=== PATIENT | female | born 1995 | race African-American/Black ===

== ENCOUNTER 2018-09-19 19:51 | Emergency (ER) | payer OTHER, BC ==
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
--- NOTE | 2018-09-19 23:02 | US ---
EXAM: US Abdomen Limited CLINICAL HISTORY: ITS.REASON US Reason: Pain TECHNIQUE: Real-time ultrasound of the abdomen including the 4 abdominal quadrants and midline, with image documentation. COMPARISON: No relevant prior studies available. FINDINGS: Scanning of the 4 abdominal quadrants and midline demonstrates no evidence for free fluid. IMPRESSION: No visualized free fluid/ascites.
--- NOTE | 2018-09-19 23:11 | US ---
EXAM: US First Trimester, Transabdominal US , Transvaginal CLINICAL HISTORY: ITS.REASON US Reason: Pain TECHNIQUE: Real-time transabdominal and transvaginal obstetrical ultrasound of the maternal pelvis and a first trimester with image documentation. Transvaginal imaging was used for better evaluation of the fetus and adnexa. COMPARISON: No relevant prior studies available. FINDINGS: Gestation: Evidence for single, intrauterine . [place]-rump length of 3.6 mm estimated 6 week 0 day gestational age. No current heart tones identified. A yolk sac is identified. Uterus/cervix: Unremarkable. No myometrial mass. Ovaries: Right ovary is 2.0 x 2.9 x 2.6 cm. Left ovary nonvisualized. Region of the left adnexa is obscured by bowel gas. Free fluid: No visualized free fluid. IMPRESSION: 1. Single intrauterine gestation identified, crown-rump length estimating 6 week 0 day gestational age. No heart tones identified currently, possibly too early though nonspecific with demise not excluded. Correlate with beta hCG value and short interval follow-up sonography (7-10 days or as indicated) to assess for viable . 2. Left ovary is nonvisualized. [employer] 09/19/18 23:12 Call Doctor Regarding Other, called Dr. Nayak
[2018-09-19 23:35] VITALS: TEMP 98
[2018-09-20 00:10] VITALS: BP 128/90; PULSE 80; RESP 18
== END 2018-09-20 | disposition home or self-care (01) ==
LOC: EC 19:51
DX: O99.89 Other specified diseases and conditions complicating pregnancy, childbirth and the puerperium (principal); R10.32 Left lower quadrant pain; M79.602 Pain in left arm; M79.605 Pain in left leg; Z3A.08 8 weeks gestation of pregnancy; Z71.1 Person with feared health complaint in whom no diagnosis is made
CPT/HCPCS: 36415; 76705; 76801; 76817; 84702; 99284

== ENCOUNTER → 2018-09-22 | Outpatient (CLI) | payer BC, OTHER | LOC: LABWHC1 16:07 | PROVIDERS: ATTEND Physician Assistant Medical | DX: R10.32 Left lower quadrant pain (principal) | CPT/HCPCS: 36415; 84702 ==

== ENCOUNTER → 2018-10-02 | Outpatient (CLI) | payer BC | END | disposition home or self-care (01) | LOC: LABWHC1 08:34 | PROVIDERS: ATTEND Obstetrics & Gynecology Obstetrics | DX: O02.1 Missed abortion (principal) | CPT/HCPCS: 36415; 84702; 86850; 86900; 86901 ==

== ENCOUNTER 2018-10-06 16:30 | Emergency (ER) | payer BC ==
[2018-10-06] MEDS: HYDROcodone/APAP 5-325MG 1 EACH TAB PO STA (17:33)
[2018-10-06] MEDS: SODIUM CHLORIDE 0.9% 1,000 ML IV STA (17:34)
[2018-10-06 17:49] LABS: Basophils % (A) 0 %; Eosinophils # (A) 0.3 k/uL (0-0.7); Eosinophils % (A) 3 %; HCT 34.5 % (34.0-46.0); HGB 11.2 gm/dL (11.4-16.0); Lymphocytes % (A) 18 %; MCH 26.3 pg (25.0-35.0); MCHC 32.4 g/dL (31.0-37.0); MCV 80.9 fL (80.0-100.0); Monocytes # (A) 0.4 k/uL (0-1.0); Monocytes % (A) 3 %; Neutrophils # (A) 8.2 k/uL (1.3-7.7); Neutrophils % (A) 74 %; Platelet Count 244 k/uL (150-450); RBC 4.27 m/uL (3.80-5.40); RDW 14.2 % (11.5-15.5); WBC 11.1 k/uL (3.8-10.6)
[2018-10-06 17:57] LABS: Appearance,Urine Clear (Clear); Bacteria,Urine Rare /hpf; Bilirubin,Urine Negative (Negative); Blood,Urine Moderate (Negative); Color,Urine Yellow; Glucose,Urine (UA) Negative (Negative); Ketones,Urine Negative (Negative); Leukocyte Esterase,Urine Small (Negative); Mucus,Urine Occasional /hpf; Nitrite,Urine Negative (Negative); PH, Urine 5.5 (5.0-8.0); Protein,Urine Negative (Negative); RBC,Urine 61 /hpf (0-5); Specific Gravity,Urine 1.015 (1.001-1.035); Squamous Epithelial Cell,Urine <1 /hpf (0-4); Urobilinogen,Urine <2.0 mg/dL (<2.0)
[2018-10-06 18:00] LABS: ALT 24 U/L (9-52); AST 19 U/L (14-36); Albumin 3.5 g/dL (3.5-5.0); Alkaline Phosphatase 79 U/L (38-126); Anion Gap 7 mmol/L; Blood Urea Nitrogen 9 mg/dL (7-17); Carbon Dioxide 25 mmol/L (22-30); Chloride 108 mmol/L (98-107); Glucose 67 mg/dL (74-99); Potassium 3.9 mmol/L (3.5-5.1); Sodium 140 mmol/L (137-145); Total Bilirubin 0.5 mg/dL (0.2-1.3); Total Protein 7.1 g/dL (6.3-8.2)
--- NOTE | 2018-10-06 18:50 | ED ---
General Adult HPI - General Chief complaint: Abdominal Pain Stated complaint: Bleeding Time Seen by Provider: 10/06/18 16:46 Source: patient, RN notes reviewed, old records reviewed Mode of arrival: ambulatory Limitations: no limitations - History of Present Illness Initial comments: 23-year-old female patient with past medical history of missed , presents to ED with uterine cramping and vaginal bleeding. Patient reports that she is approximately 10 weeks gestation and had a missed . Patient followed up with RN CHEMICAL DEPENDENCY Dr. Barnhart. Patient was seen on Tuesday and prescribed oxytocin. On Tuesday patient reports that she passed the missed . The last 2 days patient has complained of some uterine cramping, as well as heavy vaginal bleeding. Patient denies other complaints. Systemic: Pt denies fatigue, myalgia, fever/chills, rash. Pt denies weakness, night sweats, weight loss. Neuro: Pt denies headache, visual disturbances, syncope or pre-syncope. HEENT: Pt denies ocular discharge or irritation, otalgia, rhinorrhea, pharyngitis or notable lymphadenopathy. Cardiopulmonary: Pt denies chest pain, SOB, heart palpitations, dyspnea on exertion. Abdominal/GI: Pt denies abdominal pain, n/v/d. : Pt denies dysuria, burning w/ urination, frequency/urgency. Denies new onset urinary or bowel incontinence. MSK: Pt denies myalgia, loss of strength or function in extremities. Neuro: Pt denies new onset weakness, paresthesias. - Related Data Home Medications Medication Instructions Recorded Confirmed Ibuprofen [Motrin Ib] 600 mg PO Q8H 10/06/18 10/06/18 Allergies Allergy/AdvReac Type Severity Reaction Status Date / Time Penicillins Allergy Rash/Hives Verified 10/06/18 16:59 Review of Systems ROS Statement: Those systems with pertinent positive or pertinent negative responses have been documented in the HPI. ROS Other: All systems not noted in ROS Statement are negative. Past Medical History Past Medical History: No Reported History History of Any Multi-Drug Resistant Organisms: None Reported Past Surgical History: No Surgical Hx Reported Past Psychological History: No Psychological Hx Reported Smoking Status: Never smoker Past Alcohol Use History: None Reported Past Drug Use History: None Reported General Exam - General Exam Comments Initial Comments: Constitutional: NAD, AOX3, Pt has pleasant affect. HEENT: NC/AT, trachea midline, neck supple, no lymphadenopathy. Posterior pharynx non erythematous, without exudates. External ears appear normal, without discharge. Mucous membranes moist. Eyes PERRLA, EOM intact. There is no scleral icterus. No pallor noted. Cardiopulmonary: RRR, no murmurs, rubs or gallops, no JVD noted. Lungs CTAB in anterior and posterior brush. No peripheral edema. Abdominal exam: Abdomen soft and non-distended. Abdomen non-tender to palpation in all 4 quadrants. Bowel sounds active in LLQ. No hepatosplenomegaly. No ecchymosis Neuro: CN II-XII grossly intact. No nuchal rigidity. MSK: No posterior calf tenderness bilaterally, homans sign negative bilaterally. Posterior tibialis and radial pulse +2 bilaterally. Sensation intact in upper and lower extremities. Full active ROM in upper and lower extremities, 5/5 stregnth. : Pelvic exam performed by JARROD Olea. No significant pathology noted. Cervix open, mild amount of blood noted in canal. No lesions noted. No bimanual tenderness. Limitations: no limitations Course Vital Signs 10/06/18 10/06/18 16:32 18:56 Temperature 97.9 F Pulse Rate 92 76 Respiratory 18 19 Rate Blood Pressure 115/80 123/86 O2 Sat by Pulse 99 100 Oximetry Medical Decision Making - Medical Decision Making 23-year-old female patient with past medical history of missed , presents to ED with uterine cramping and vaginal bleeding. Patient reports that she is approximately 10 weeks gestation and had a missed . Patient followed up with RN CHEMICAL DEPENDENCY Dr. Barnhart. Patient was seen on Tuesday and prescribed oxytocin. On Tuesday patient reports that she passed the missed . The last 2 days patient has complained of some uterine cramping, as well as heavy vaginal bleeding. Patient denies other complaints. Patient vital signs stable, afebrile. Physical exam displayed: Abdomen soft and non- distended. Abdomen non-tender to palpation in all 4 quadrants. Pelvic exam performed by JARROD Olea. No significant pathology noted. Cervix open, mild amount of blood noted in canal. No lesions noted. No bimanual tenderness. Laboratory investigations revealed non-impressive CBC, CMP. Hb 11.1. UA displayed to count red blood cells. Patient to be discharged. She'll follow up with RN CHEMICAL DEPENDENCY Dr. Barnhart. Patient will follow up with primary care provider in 1-2 days. Patient to return to ED if he doesn't smoke or condition worsens in anyway. - Lab Data Result diagrams: 10/06/18 16:56 10/06/18 16:56 Lab Results 10/06/18 10/06/18 10/06/18 Range/Units 16:56 16:56 16:56 WBC 11.1 H (3.8-10.6) k/uL RBC 4.27 (3.80-5.40) m/uL Hgb 11.2 L (11.4-16.0) gm/dL Hct 34.5 (34.0-46.0) % MCV 80.9 (80.0-100.0) fL MCH 26.3 (25.0-35.0) pg MCHC 32.4 (31.0-37.0) g/dL RDW 14.2 (11.5-15.5) % Plt Count 244 (150-450) k/uL Neutrophils % 74 % Lymphocytes % 18 % Monocytes % 3 % Eosinophils % 3 % Basophils % 0 % Neutrophils # 8.2 H (1.3-7.7) k/uL Lymphocytes # 2.0 (1.0-4.8) k/uL Monocytes # 0.4 (0-1.0) k/uL Eosinophils # 0.3 (0-0.7) k/uL Basophils # 0.0 (0-0.2) k/uL Sodium 140 (137-145) mmol/L Potassium 3.9 (3.5-5.1) mmol/L Chloride 108 H (98-107) mmol/L Carbon Dioxide 25 (22-30) mmol/L Anion Gap 7 mmol/L BUN 9 (7-17) mg/dL Creatinine 0.82 (0.52-1.04) mg/dL Est GFR (CKD-EPI)AfAm >90 (>60 ml/min/1.73 sqM) Est GFR (CKD-EPI)NonAf >90 (>60 ml/min/1.73 sqM) Glucose 67 L (74-99) mg/dL Calcium 9.0 (8.4-10.2) mg/dL Total Bilirubin 0.5 (0.2-1.3) mg/dL AST 19 (14-36) U/L ALT 24 (9-52) U/L Alkaline Phosphatase 79 (38-126) U/L Total Protein 7.1 (6.3-8.2) g/dL Albumin 3.5 (3.5-5.0) g/dL Urine Color Yellow Urine Appearance Clear (Clear) Urine pH 5.5 (5.0-8.0) Ur Specific [place] 1.015 (1.001-1.035) Urine Protein Negative (Negative) Urine Glucose (UA) Negative (Negative) Urine Ketones Negative (Negative) Urine Blood Moderate H (Negative) Urine Nitrite Negative (Negative) Urine Bilirubin Negative (Negative) Urine Urobilinogen <2.0 (<2.0) mg/dL Ur Leukocyte Esterase Small H (Negative) Urine RBC 61 H (0-5) /hpf Urine WBC 5 (0-5) /hpf Ur Squamous Epith Cells <1 (0-4) /hpf Urine Bacteria Rare H (None) /hpf Urine Mucus Occasional H (None) /hpf Disposition Clinical Impression: Vaginal bleeding Disposition: HOME SELF-CARE Condition: Stable Instructions (If sedation given, give patient instructions): Dysfunctional Uterine Bleeding (ED) Additional Instructions: Patient to adhere to previously discussed treatment plan and will take medication(s) as directed. Patient to follow up with PCP in 1-2 days. Patient to return to ED if symptoms do not improve. This follow-up with primary care provider in 1-2 days. Please call RN CHEMICAL DEPENDENCY tomorrow for continued evaluation. Is patient prescribed a controlled substance at d/c from ED?: No Referrals: Ilya Rodriguez MD [Primary Care Provider] - 1-2 days
--- NOTE | 2018-10-06 19:06 | US ---
EXAMINATION TYPE: US transvaginal DATE OF EXAM: 10/06/2018 COMPARISON: NONE CLINICAL HISTORY: Pain. Patient states she had a miscarriage 2 weeks ago and was given pills 3 days a go to help pass fetus, states she has had an increase in bleeding and pain for the past couple days. TECHNIQUE: Transvaginal ER exam. Date of LMP: EXAM MEASUREMENTS: Uterus: 10.5 x 5.6 x 7.0 cm Endometrial Stripe: 1.9 cm Right Ovary: 3.2 x 2.2 x 1.4 cm Left Ovary: not seen 1. Uterus: anteverted 2. Endometrium: thickened, heterogeneous 3. Right Ovary: wnl 4. Left Ovary: not seen Spectral, color and waveform doppler imaging shows good arterial flow within the right ovary, unabl e to obtain venous flow within the right ovary. 5. Bilateral Adnexa: wnl 6. Posterior cul-de-sac: wnl IMPRESSION: No adnexal mass or free fluid. Mild thickening of the endometrium without a discrete mass . This could relate to some retained products.
[2018-10-06 20:45] VITALS: BP 124/92; PULSE 91; RESP 16; TEMP 98.3
== END 2018-10-06 20:45 | disposition home or self-care (01) ==
LOC: EC 16:30
DX: O20.9 Hemorrhage in early pregnancy, unspecified (principal); Z3A.10 10 weeks gestation of pregnancy; Z79.1 Long term (current) use of non-steroidal anti-inflammatories (NSAID); Z88.0 Allergy status to penicillin
CPT/HCPCS: 36415; 76830; 80053; 81001; 85025; 93976; 96360; 96361; 99284

== ENCOUNTER 2019-03-16 | Emergency (ER) | payer BC ==
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
== END 2019-03-16 16:22 | disposition home or self-care (01) ==
CPT/HCPCS: 82075; 99285

== ENCOUNTER 2019-07-27 21:43 | Emergency (ER) | payer BC ==
[2019-07-27 21:53] VITALS: RESP 20
[2019-07-27] MEDS ORDERED: ACETAMINOPHEN TAB 325 MG TAB PO STA (21:58)
[2019-07-27] MEDS ORDERED: IBUPROFEN 400 MG TAB PO STA (21:58)
[2019-07-27] MEDS ORDERED: LIDOCAINE VISCOUS 2% 15 ML CUP MUCOUS MEM STA (22:13)
--- NOTE | 2019-07-27 22:18 | ED ---
ENT HPI - General Chief complaint: ENT Stated complaint: Throat Pain Time Seen by Provider: 07/27/19 21:57 Source: patient Mode of arrival: ambulatory Limitations: no limitations - History of Present Illness Initial comments: this patient is a 24-year-old woman who presents to be evaluated for sore throat. The patient states that she has been having one to 2 weeks of what she describes as "common cold" symptoms. She states she is having cough, rhinorrhea and a little bit of congestion. She states that this morning she noticed that there was a little bit of soreness when she was swallowing in her throat. She indicates mainly the left side. Towards the afternoon and evening she noticed that there was white spot on the tonsil. She has noted some feelings that she was hot and cold though did not take temperature. MD complaint: sore throat Onset/Timin -: hour(s) Severity: moderate Quality: aching Consistency: constant Improves with: none Worsens with: swallowing Associated Symptoms: cough, sore throat, rhinorrhea - Related Data Home Medications Medication Instructions Recorded Confirmed Ibuprofen [Motrin Ib] 600 mg PO Q8H 10/06/18 10/06/18 Previous Rx's Medication Instructions Recorded Benzonatate [Tessalon Perles] 100 mg PO TID PRN #15 capsule 07/27/19 Lidocaine Viscous [Xylocaine 5 ml PO Q3HR PRN #100 ml 07/27/19 Viscous 2%] Allergies Allergy/AdvReac Type Severity Reaction Status Date / Time amoxicillin Allergy Rash/Hives Verified 07/27/19 21:54 Review of Systems ROS Statement: Those systems with pertinent positive or pertinent negative responses have been documented in the HPI. ROS Other: All systems not noted in ROS Statement are negative. Constitutional: Reports: as per HPI, fever (low-grade) Eyes: Denies: eye pain, eye discharge ENT: Reports: throat pain, congestion. Denies: ear pain, hearing loss Respiratory: Reports: cough. Denies: dyspnea, wheezes Gastrointestinal: Denies: abdominal pain, nausea, vomiting Skin: Denies: rash Neurological: Denies: headache Past Medical History Past Medical History: No Reported History History of Any Multi-Drug Resistant Organisms: None Reported Past Surgical History: No Surgical Hx Reported Past Psychological History: No Psychological Hx Reported Smoking Status: Never smoker Past Alcohol Use History: None Reported Past Drug Use History: None Reported General Exam Limitations: no limitations General appearance: alert, in no apparent distress Head exam: Present: atraumatic, normocephalic Eye exam: Present: normal appearance. Absent: scleral icterus, conjunctival injection ENT exam: Present: mucous membranes moist, TM's normal bilaterally, normal ext ernal ear exam, other (the patient does have some mild inflammation of left tonsil. There is no evidence of peritonsillar abscess. The uvula is midline with no edema.) Neck exam: Present: normal inspection, full ROM. Absent: tenderness, meningismus, lymphadenopathy Respiratory exam: Present: normal lung sounds bilaterally. Absent: respiratory distress, wheezes, rales, rhonchi, stridor Cardiovascular Exam: Present: regular rate, normal rhythm, normal heart sounds. Absent: systolic murmur, diastolic murmur, rubs, gallop GI/Abdominal exam: Present: soft. Absent: tenderness, guarding, rebound, organomegaly, mass Neurological exam: Present: alert Skin exam: Present: warm, dry, intact, normal color. Absent: rash Course Vital Signs 07/27/19 21:52 Temperature 100.3 F H Pulse Rate 115 H Respiratory 20 Rate Blood Pressure 117/76 O2 Sat by Pulse 100 Oximetry Medical Decision Making - Lab Data Lab Results 07/27/19 Range/Units 22:25 Group A Strep Rapid Negative (Negative) Disposition Clinical Impression: Pharyngitis Disposition: HOME SELF-CARE Condition: Good Instructions (If sedation given, give patient instructions): Pharyngitis (ED) Prescriptions: Benzonatate [Tessalon Perles] 100 mg PO TID PRN #15 capsule PRN Reason: Cough Lidocaine Viscous [Xylocaine Viscous 2%] 5 ml PO Q3HR PRN #100 ml PRN Reason: Sore Throat Is patient prescribed a controlled substance at d/c from ED?: No Referrals: lIya Rodriguez MD [Primary Care Provider] - 1-2 days
[2019-07-27 23:08] VITALS: BP 116/72; PULSE 100; TEMP 99
== END 2019-07-27 23:17 | disposition home or self-care (01) ==
LOC: EC 21:43
DX: J02.9 Acute pharyngitis, unspecified (principal); Z79.1 Long term (current) use of non-steroidal anti-inflammatories (NSAID); Z88.0 Allergy status to penicillin
CPT/HCPCS: 87081; 87430; 99283

== ENCOUNTER 2019-07-30 15:30 | Emergency (ER) | payer BC ==
[2019-07-30 15:38] VITALS: BP 123/79
[2019-07-30] MEDS ORDERED: ACETAMINOPHEN TAB 500 MG TAB PO STA (16:20)
[2019-07-30] MEDS ORDERED: IBUPROFEN 600 MG TAB PO STA (16:20)
--- NOTE | 2019-07-30 16:25 | ED ---
General Adult HPI - General Chief complaint: ENT Stated complaint: recheck - neck pain Time Seen by Provider: 07/30/19 16:12 Source: patient, RN notes reviewed Mode of arrival: ambulatory Limitations: no limitations - History of Present Illness Initial comments: 24-year-old female presents to the emergency department for a chief complaint of sore throat. Patient states she has had a sore throat for about 4 days. States that she has had fevers on and off for the past 4 days as well. States that she is pain and lymph nodes in the left anterior neck. Denies any posterior neck pain. Patient was seen here in the emergency department 2 days ago, rapid strep was negative at that time. Patient denies any abdominal pain. Does admit to mild cough. Denies congestion.Patient has no other complaints at this time including shortness of breath, chest pain, abdominal pain, nausea or vomiting, headache, or visual changes. - Related Data Home Medications Medication Instructions Recorded Confirmed Ibuprofen [Motrin Ib] 600 mg PO Q8H 10/06/18 10/06/18 Previous Rx's Medication Instructions Recorded Benzonatate [Tessalon Perles] 100 mg PO TID PRN #15 capsule 07/27/19 Lidocaine Viscous [Xylocaine 5 ml PO Q3HR PRN #100 ml 07/27/19 Viscous 2%] Azithromycin [Zithromax Z-pack] 250 mg PO DIRECTED #6 tab 07/30/19 predniSONE 50 mg PO DAILY #5 tablet 07/30/19 Allergies Allergy/AdvReac Type Severity Reaction Status Date / Time amoxicillin Allergy Rash/Hives Verified 07/30/19 15:38 Review of Systems ROS Statement: Those systems with pertinent positive or pertinent negative responses have been documented in the HPI. ROS Other: All systems not noted in ROS Statement are negative. Past Medical History Past Medical History: No Reported History History of Any Multi-Drug Resistant Organisms: None Reported Past Surgical History: No Surgical Hx Reported Past Psychological History: No Psychological Hx Reported Smoking Status: Never smoker Past Alcohol Use History: None Reported Past Drug Use History: None Reported General Exam Limitations: no limitations General appearance: alert, in no apparent distress Head exam: Present: atraumatic, normocephalic, normal inspection Eye exam: Present: normal appearance, PERRL, EOMI. Absent: scleral icterus, conjunctival injection, periorbital swelling ENT exam: Present: normal exam, mucous membranes moist, TM's normal bilaterally, normal external ear exam. Absent: normal oropharynx (erythematous with tonsillar exudates bilaterally, uvula midline, no evidence for [employer]) Neck exam: Present: normal inspection, full ROM. Absent: tenderness, meningismus, lymphadenopathy Respiratory exam: Present: normal lung sounds bilaterally. Absent: respiratory distress, wheezes, rales, rhonchi, stridor Cardiovascular Exam: Present: regular rate, normal rhythm, normal heart sounds. Absent: systolic murmur, diastolic murmur, rubs, gallop, clicks Course Vital Signs 07/30/19 07/30/19 07/30/19 15:36 17:31 18:23 Temperature 101.1 F H 98.4 F Pulse Rate 136 H 103 H 101 H Respiratory 18 20 Rate Blood Pressure 123/79 O2 Sat by Pulse 98 99 99 Oximetry Medical Decision Making - Medical Decision Making Chest initially tachycardic likely secondary to fever of 101.1. She was given Motrin and Tylenol and this did improve to 101. Exam patient did have bilateral tonsillar exudates. Uvula midline. I do not see any evidence for peritonsillar abscess at this time. Heterophile and rapid strep are negative. Patient was recently seen here for similar complaint 2 days ago. Was not given antibiotics at that time. As time I do want to treat patient with antibiotics. She is ALLERGIC to amoxicillin and therefore will be given azithromycin. She will follow up with primary care in 1-2 days. She'll return here if she is any worsening symptoms. - Lab Data Lab Results 07/30/19 07/30/19 Range/Units 16:26 16:26 Heterophile Antibody Negative (Negative) Group A Strep Rapid Negative (Negative) Disposition Clinical Impression: Pharyngitis Disposition: HOME SELF-CARE Condition: Good Instructions (If sedation given, give patient instructions): Pharyngitis (ED) Additional Instructions: please take antibiotic as directed. Please follow-up with primary care in 1-2 days. Return to the emergency department if you have any worsening symptoms. Prescriptions: predniSONE 50 mg PO DAILY #5 tablet Azithromycin [Zithromax Z-pack] 250 mg PO DIRECTED #6 tab Is patient prescribed a controlled substance at d/c from ED?: No Referrals: Ilya Rodriguez MD [Primary Care Provider] - 1-2 days Time of Disposition: 18:11
--- NOTE | 2019-07-30 17:04 | XR ---
EXAMINATION TYPE: XR chest 2V DATE OF EXAM: 07/30/2019 COMPARISON: NONE HISTORY: Cough and congestion TECHNIQUE: 2 views FINDINGS: Heart and mediastinum are normal. Lungs are clear. Diaphragm is normal. Bony thorax appears normal. IMPRESSION: Normal chest.
[2019-07-30 17:31] VITALS: RESP 20
[2019-07-30 18:24] VITALS: PULSE 101; TEMP 98.4
== END 2019-07-30 18:24 | disposition home or self-care (01) ==
LOC: EC 15:30
DX: J02.9 Acute pharyngitis, unspecified (principal); Z88.0 Allergy status to penicillin
CPT/HCPCS: 36415; 71046; 86308; 87070; 87430; 99283

== ENCOUNTER 2019-10-02 21:59 | Emergency (ER) | payer BC ==
[2019-10-02 22:04] VITALS: BP 125/81; PULSE 108; RESP 18; TEMP 99.5
[2019-10-02] MEDS ORDERED: FAMOTIDINE 20 MG TAB PO STA (22:13)
[2019-10-02] MEDS ORDERED: predniSONE 20 MG TAB PO STA (22:13)
--- NOTE | 2019-10-02 22:21 | ED ---
Skin/Abscess/FB HPI - General Chief complaint: Skin/Abscess/Foreign Body Stated complaint: rash Time Seen by Provider: 10/02/19 22:07 Source: patient Mode of arrival: ambulatory Limitations: no limitations - History of Present Illness Initial comments: Patient is a 24-year-old female presenting to emergency Department with a chief complaint of a rash. States the symptoms started yesterday with "bones" on her forearms and it gradually spread to her trunk and bilateral lower extremities. States the rash is itchy but not painful. Denies using any medications recently. Denies taking any Benadryl home. Denies any fevers night sweats or chills. Denies any nausea vomiting diarrhea. No chest pain shortness of breath. - Related Data Home Medications Medication Instructions Recorded Confirmed Ibuprofen [Motrin Ib] 600 mg PO Q8H 10/06/18 10/06/18 Previous Rx's Medication Instructions Recorded Benzonatate [Tessalon Perles] 100 mg PO TID PRN #15 capsule 07/27/19 Lidocaine Viscous [Xylocaine 5 ml PO Q3HR PRN #100 ml 07/27/19 Viscous 2%] Azithromycin [Zithromax Z-pack] 250 mg PO DIRECTED #6 tab 07/30/19 predniSONE 50 mg PO DAILY #5 tablet 07/30/19 Allergies Allergy/AdvReac Type Severity Reaction Status Date / Time amoxicillin Allergy Rash/Hives Verified 10/02/19 22:04 Review of Systems ROS Statement: Those systems with pertinent positive or pertinent negative responses have been documented in the HPI. ROS Other: All systems not noted in ROS Statement are negative. Past Medical History Past Medical History: No Reported History History of Any Multi-Drug Resistant Organisms: None Reported Past Surgical History: No Surgical Hx Reported Past Psychological History: No Psychological Hx Reported Smoking Status: Never smoker Past Alcohol Use History: Occasional Past Drug Use History: None Reported General Exam Limitations: no limitations General appearance: alert, in no apparent distress Head exam: Present: atraumatic, normocephalic, normal inspection Eye exam: Present: normal appearance Pupils: Present: normal accommodation ENT exam: Present: normal exam Neck exam: Present: normal inspection, full ROM Respiratory exam: Present: normal lung sounds bilaterally Cardiovascular Exam: Present: regular rate, normal rhythm, normal heart sounds Extremities exam: Present: normal inspection, full ROM Back exam: Present: normal inspection, full ROM Neurological exam: Present: alert, oriented X3 Psychiatric exam: Present: normal affect, normal mood Skin exam: Present: warm, dry, intact, normal color, rash, urticaria Course Vital Signs 10/02/19 22:01 Temperature 99.5 F Pulse Rate 108 H Respiratory 18 Rate Blood Pressure 125/81 O2 Sat by Pulse 99 Oximetry Medical Decision Making - Medical Decision Making Patient is 24-year-old female presenting to the emergency department with chief complaint of a rash. Physical examination patient appears to have hives. Patient treated with prednisone and Benadryl to 80. She was advised to continue taking Benadryl at home. On reevaluation patient reports improvement and the itchiness. No dysphasia, no aphasia, dyspnea, chest pain shortness of breath. Return parameters were thoroughly discussed with patient was understanding and agreeable. Patient advised to follow primary care. Case discussed with physician. Disposition Clinical Impression: Hives, Rash Disposition: HOME SELF-CARE Condition: Stable Instructions (If sedation given, give patient instructions): Urticaria (ED) Additional Instructions: Take Benadryl at home. Return to emergency department if symptoms worsen. Is patient prescribed a controlled substance at d/c from ED?: No Referrals: Ilya Rodriguez MD [Primary Care Provider] - 1-2 days Time of Disposition: 22:49
[2019-10-02] MEDS ORDERED: diphenhydrAMINE 50 MG CAP PO STA (22:46)
== END 2019-10-02 23:01 | disposition home or self-care (01) ==
LOC: EC 21:59
DX: L50.9 Urticaria, unspecified (principal); Z88.0 Allergy status to penicillin
CPT/HCPCS: 99282; J7512

== ENCOUNTER 2020-01-12 15:09 | Emergency (ER) | payer BC ==
[2020-01-12 15:29] VITALS: BP 130/82; PULSE 89; RESP 18; TEMP 99.1
[2020-01-12] MEDS ORDERED: CLINDAMYCIN 150 MG CAP PO STA (15:51)
--- NOTE | 2020-01-12 15:58 | ED ---
General Adult HPI - General Chief complaint: ENT Stated complaint: throat pain Time Seen by Provider: 01/12/20 15:31 Source: patient, RN notes reviewed Mode of arrival: ambulatory Limitations: no limitations - History of Present Illness Initial comments: 24-year-old female presents to the emergency determine for a chief complaint pharyngitis. Patient states she has had a sore throat for about a week. Patient states she was seen at [facility] at that time and was given steroids. Patient denies any difficulty swallowing but does state she has pain with swallowing. She denies fevers. Denies any neck stiffness. Denies any difficulty opening her mouth. Patient has no other complaints at this time including shortness of breath, chest pain, abdominal pain, nausea or vomiting, headache, or visual changes. - Related Data Home Medications Medication Instructions Recorded Confirmed Ibuprofen [Motrin Ib] 600 mg PO Q8H 10/06/18 10/06/18 Previous Rx's Medication Instructions Recorded Benzonatate [Tessalon Perles] 100 mg PO TID PRN #15 capsule 07/27/19 Lidocaine Viscous [Xylocaine 5 ml PO Q3HR PRN #100 ml 07/27/19 Viscous 2%] Azithromycin [Zithromax Z-pack] 250 mg PO DIRECTED #6 tab 07/30/19 predniSONE 50 mg PO DAILY #5 tablet 07/30/19 Clindamycin [Cleocin] 450 mg PO Q6H 10 Days #120 cap 01/12/20 Allergies Allergy/AdvReac Type Severity Reaction Status Date / Time amoxicillin Allergy Rash/Hives Verified 01/12/20 15:29 Review of Systems ROS Statement: Those systems with pertinent positive or pertinent negative responses have been documented in the HPI. ROS Other: All systems not noted in ROS Statement are negative. Past Medical History Past Medical History: No Reported History History of Any Multi-Drug Resistant Organisms: None Reported Past Surgical History: No Surgical Hx Reported Past Psychological History: No Psychological Hx Reported Smoking Status: Never smoker Past Alcohol Use History: Occasional Past Drug Use History: None Reported General Exam Limitations: no limitations General appearance: alert, in no apparent distress Head exam: Present: atraumatic, normocephalic, normal inspection Eye exam: Present: normal appearance, PERRL, EOMI. Absent: scleral icterus, conjunctival injection, periorbital swelling ENT exam: Present: normal exam, mucous membranes moist, TM's normal bilaterally, normal external ear exam. Absent: normal oropharynx (She does have an erythematous oropharynx. Uvula is midline. There is some minimal fullness of the right peritonsillar pillar with associated erythema.) Neck exam: Present: normal inspection, full ROM. Absent: tenderness, meningismus, lymphadenopathy Respiratory exam: Present: normal lung sounds bilaterally. Absent: respiratory distress, wheezes, rales, rhonchi, stridor Cardiovascular Exam: Present: regular rate, normal rhythm, normal heart sounds. Absent: systolic murmur, diastolic murmur, rubs, gallop, clicks GI/Abdominal exam: Present: soft, normal bowel sounds. Absent: distended, tenderness, guarding, rebound, rigid Course Vital Signs 01/12/20 15:25 Temperature 99.1 F Pulse Rate 89 Respiratory 18 Rate Blood Pressure 130/82 O2 Sat by Pulse 100 Oximetry Medical Decision Making - Medical Decision Making Vitals are stable. Patient is well-appearing. She is fully able to open her mouth. Physical exam does reveal erythema and minimal edema to the right peritonsillar pillar however uvula midline. Patient reports that she is able to express some pus when she squeezes on the area. Dr. Galloway also examined patient. At this time it is likely a pharyngitis with associated cellulitis around the tonsil patient be treated with antibiotics. Did discuss possibility of a small abscess however we are not going to CAT scan patient at this time as she is . She is already able to express pus so technically abscess would be open and draining. We will try antibiotics first. Patient is ALLERGIC to amoxicillin so was put on clindamycin which is recommended for abscesses as well as pharyngitis and is category B in . I discussed strict return parameters with patient and she is agreeable to return if she has any worsening symptoms. Otherwise she'll follow up with primary care and ENT in 1-2 days. - Lab Data Lab Results 01/12/20 Range/Units 15:40 Group A Strep Rapid Negative (Negative) Disposition Clinical Impression: Pharyngitis Disposition: HOME SELF-CARE Condition: Good Instructions (If sedation given, give patient instructions): Strep Throat (ED) Additional Instructions: Please take antibiotic as directed. Closely monitor for any worsening symptoms. If you have fever, worsening pain, inability to swallow liquids or swallow antibiotics, or any other concerning features return immediately to the emergency department. Otherwise follow-up with primary care and ENT in 1-2 days. Prescriptions: Clindamycin [Cleocin] 450 mg PO Q6H 10 Days #120 cap Is patient prescribed a controlled substance at d/c from ED?: No Referrals: Ilya Rodriguez MD [Primary Care Provider] - 1-2 days Mick Laguerre MD [STAFF PHYSICIAN] - 1-2 days Time of Disposition: 15:56
== END 2020-01-12 16:15 | disposition home or self-care (01) ==
LOC: EC 15:09
DX: J02.9 Acute pharyngitis, unspecified (principal); Z88.0 Allergy status to penicillin
CPT/HCPCS: 87070; 87430; 99283

== ENCOUNTER 2020-01-13 09:03 | Emergency (ER) | payer BC ==
[2020-01-13 09:09] VITALS: PULSE 90; RESP 18
[2020-01-13 09:38] VITALS: BP 131/79; TEMP 97.4
[2020-01-13] MEDS ORDERED: ceFAZolin 1,000 MG VIAL (IM USE) IM STA (09:45)
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
[2020-01-13] MEDS ORDERED: BENZOCAINE SPRAY 1 CAN MUCOUS MEM STA (10:28)
== END 2020-01-13 11:04 | disposition home or self-care (01) ==
LOC: EC 09:03
DX: J36 Peritonsillar abscess (principal); M79.89 Other specified soft tissue disorders; Z88.0 Allergy status to penicillin
CPT/HCPCS: 87070; 87205; 96372; 99284; 10160; J0690

== ENCOUNTER 2020-05-19 16:45 | Inpatient (IN) | payer BC, OTHER ==
[2020-05-19] MEDS ORDERED: CARBOPROST TROMETHAMINE 250 MCG/ML 1 ML AMP IM PRN (17:48)
[2020-05-19] MEDS ORDERED: METHYLERGONOVINE 0.2 MG/ML 1 ML AMP IM PRN (17:48)
[2020-05-19] MEDS ORDERED: OXYTOCIN 10 UNIT/ML 1 ML VIAL IM PRN (17:48)
[2020-05-19] MEDS ORDERED: LIDOCAINE 0.5% (PF) 5 MG/ML (50 ML SDV) SQ PRN (17:48)
[2020-05-19] MEDS ORDERED: TERBUTALINE 1 MG/ML VIAL SQ PRN (17:48)
[2020-05-19] MEDS ORDERED: BUTORPHANOL 1 MG/ML 1 ML VIAL IV PRN (17:51)
[2020-05-19 17:59] LABS: Basophils # (A) 0.1 k/uL (0-0.2); Basophils % (A) 1 %; Eosinophils # (A) 0.2 k/uL (0-0.7); Eosinophils % (A) 2 %; HCT 39.9 % (34.0-46.0); HGB 12.6 gm/dL (11.4-16.0); Hypochromasia Slight; Lymphocytes # (A) 1.3 k/uL (1.0-4.8); Lymphocytes % (A) 13 %; MCH 26.7 pg (25.0-35.0); MCHC 31.6 g/dL (31.0-37.0); MCV 84.3 fL (80.0-100.0); Mean Platelet Volume 9.6; Monocytes # (A) 0.3 k/uL (0-1.0); Monocytes % (A) 4 %; Neutrophils # (A) 7.5 k/uL (1.3-7.7); Neutrophils % (A) 79 %; Platelet Count 178 k/uL (150-450); RBC 4.73 m/uL (3.80-5.40); RDW 15.7 % (11.5-15.5); WBC 9.5 k/uL (3.8-10.6)
[2020-05-19] MEDS ORDERED: OXYTOCIN 30 UNITS/500 ML NS 30 UNIT in SALINE 1 500ML.BAG IV SCH (18:00)
[2020-05-19] MEDS ORDERED: CLINDAMYCIN 900 MG in DEXTROSE 5% IN WATER 50 ML IVPB SCH ×2 (19:00)
--- NOTE | 2020-05-19 19:51 | P.HPOB ---
History of Present Illness H&P Date: 05/19/20 Chief Complaint: 38+ weeks, spontaneous rupture, active labor The patient is a 25-year-old 2 para 0010 admitted at 38+ weeks as established by last menstrual period and confirmed by 19 week ultrasound. She is admitted with documented spontaneous rupture of membranes for clear fluid in early active labor. On labor and delivery, heart tones are category 1. Her pre gnancy has been essentially uncomplicated and group B strep status is negative. Obstetrical history: 2 para 0010 with 1 early miscarriage not requiring D&C. Current statistics are listed in history present illness. EDC of 05/29/2020 was established by last menstrual period and confirmed by 19 week ultrasound. Laboratory workup demonstrates a blood type of O+ with a negative a ntibody screen. Rubella status is immune. The remainder of the laboratory workup was within normal limits as she did have a bladder infection which was treated and cured. Early Glucola was normal as well as second trimester Glucola. Group B strep status is negative. Gynecologic history: Unremarkable with no apparent history of any infections to include STDs. Review of Systems Review of systems is confined to history of present illness. Past Medical History Past Medical History: No Reported History History of Any Multi-Drug Resistant Organisms: None Reported Past Surgical History: No Surgical Hx Reported Past Psychological History: No Psychological Hx Reported Smoking Status: Never smoker Past Alcohol Use History: Occasional Past Drug Use History: None Reported - Past Family History Mother History Unknown: Yes Medications and Allergies Home Medications Medication Instructions Recorded Confirmed Type Iron 18 mg PO DAILY 05/19/20 05/19/20 History Pnv,Calcium 72/Iron/Folic Acid 1 each PO DAILY 05/19/20 05/19/20 History [ Plus Tablet] Allergies Allergy/AdvReac Type Severity Reaction Status Date / Time amoxicillin Allergy Rash/Hives Verified 05/19/20 17:18 Exam Vital Signs Temp Pulse Resp BP 05/19/20 18:17 97.4 F L 109 H 20 126/89 05/19/20 17:45 97.4 F L 109 H 16 126/89 Intake and Output 05/19/20 05/19/20 05/19/20 06:59 14:59 22:59 Other: Weight 127.006 kg In general this is a moderately obese after Krishna and female in some discomfort as she is in active labor. Her heart has a regular rhythm and rate without murmur. Her lungs are clear to auscultation bilaterally in all brush. Her abdomen is gravid, nondistended, has normal active bowel sounds, soft, nontender, and without any palpable masses aside from uterine fundus. Her extremities are without any cyanosis, clubbing, or significant edema and are nontender to palpation bilaterally. As recent digital cervical examination pe rformed by the nursing staff demonstrates her cervix to be 9 cm dilated, 100% effaced, the vertex in presentation at -1 station. Spontaneous rupture of membranes has been documented. Results Result Diagrams: 05/19/20 17:50 Abnormal Lab Results - Last 24 Hours (Table) 05/19/20 Range/Units 17:50 RDW 15.7 H (11.5-15.5) % Assessment and Plan (1) Active labor at term Current Visit: Yes Status: Acute Code(s): CUH2306 - SNOMED Code(s): 80223427 (2) Spontaneous rupture of membranes Current Visit: Yes Status: Acute Code(s): TDZ5160 - SNOMED Code(s): 611775953 Plan: The patient has been admitted for active management of labor. She is progressing rather quickly and has declined epidural analgesia. She will have close maternal and surveillance and expectant management will be practiced. I anticipate normal vaginal delivery in the near future.
[2020-05-19] MEDS ORDERED: ACETAMINOPHEN TAB 325 MG TAB PO PRN (20:42)
[2020-05-19] MEDS ORDERED: diphenhydrAMINE 50 MG/ML 1 ML VIAL IVP PRN ×2 (20:42)
[2020-05-19] MEDS ORDERED: LANOLIN CREAM 5 GM TUBE TOPICAL PRN (20:42)
[2020-05-19] MEDS ORDERED: HYDROcodone/APAP 7.5-325MG 1 EACH TAB PO PRN (20:42)
[2020-05-19] MEDS ORDERED: diphenhydrAMINE 50 MG CAP PO PRN (20:42)
[2020-05-19] MEDS ORDERED: SIMETHICONE 80 MG CHEWABLE PO PRN (20:42)
[2020-05-19] MEDS ORDERED: ZOLPIDEM 5 MG TAB PO PRN (20:42)
[2020-05-19] MEDS ORDERED: diphenhydrAMINE 25 MG CAP PO PRN (20:42)
[2020-05-19] MEDS ORDERED: HYDROCORTISONE 2.5% RECTAL CREAM 30 GM TUBE RECTAL PRN (20:42)
[2020-05-19] MEDS ORDERED: HYDROcodone/APAP 5-325MG 1 EACH TAB PO PRN (20:42)
[2020-05-19] MEDS ORDERED: BENZOCAINE/MENTHOL SPRAY 1 GM/SPRAY AEROSOL TOPICAL PRN (20:42)
[2020-05-19] MEDS ORDERED: OXYTOCIN 20 UNITS/1000 ML NS 1,000 ML IV SCH (20:45)
--- NOTE | 2020-05-19 20:46 | P.PROBDLV ---
Vaginal Delivery Note - . Vaginal Delivery Note: The patient is a 25-year-old 2 para 0010 admitted at 38-4/7 weeks by good dating parameters perches admitted in active labor with documented spontaneous rupture of membranes for clear fluid. Her has been uncomplicated and group B strep status is negative. On labor and delivery, she made fairly rapid progress to the active phase of labor and declined any form of analgesia. She progressed fairly quickly to complete and then pushed over the course of 2 contractions to a normal spontaneous vaginal delivery of a viable 8 lbs. 1 oz. baby girl with Apgars of 9 at 1 minute and 10 at 5 minutes delivered in the direct occiput anterior position. The placenta was delivered spontaneously, intact, and grossly normal with a grossly normal three-vessel cord inserted approximately 4 cm from the margin of the placental disc. There was a second-degree midline perineal laceration which was repaired in standard fashion using 3-0 chromic catgut without difficulty. Estimated blood loss for the entire case is approximately 350 mL. There were no complications. All sponge, instrument, and needle counts were correct. Both mother and infant are resting comfortably in recovery.
[2020-05-20] MEDS ORDERED: CLINDAMYCIN 900 MG in DEXTROSE 5% IN WATER 50 ML IVPB SCH ×2 (02:00)
[2020-05-20] MEDS: LACTATED RINGERS 1,000 ML IV SCH ×2 (02:28→02:29)
[2020-05-20 04:07] LABS: Basophils % (A) 0 %; Eosinophils # (A) 0.2 k/uL (0-0.7); Eosinophils % (A) 1 %; HCT 34.4 % (34.0-46.0); HGB 11.1 gm/dL (11.4-16.0); Hypochromasia Slight; Lymphocytes # (A) 1.7 k/uL (1.0-4.8); Lymphocytes % (A) 12 %; MCH 27.1 pg (25.0-35.0); MCHC 32.3 g/dL (31.0-37.0); MCV 83.9 fL (80.0-100.0); Monocytes # (A) 0.5 k/uL (0-1.0); Monocytes % (A) 4 %; Neutrophils # (A) 11.5 k/uL (1.3-7.7); Neutrophils % (A) 81 %; Platelet Count 157 k/uL (150-450); RBC 4.11 m/uL (3.80-5.40); RDW 15.7 % (11.5-15.5); WBC 14.1 k/uL (3.8-10.6)
[2020-05-20] MEDS: IBUPROFEN 600 MG TAB PO PRN ×2 (07:48→21:35)
[2020-05-20] MEDS: SENNOSIDES-DOCUSATE SODIUM 1 EACH TAB PO SCH ×2 (07:48→21:35)
--- NOTE | 2020-05-20 12:10 | P.PNOBGVD ---
Subjective - Subjective Principal diagnosis: PPD 1 Interval history: Patient is doing well PP. she denies any concerns this am. she is ambulating and voiding without difficulty. she states lochia is minimal she notes good pain control. Patient reports: Reports appetite normal, Reports voiding normally, Reports pain well controlled, Reports ambulating normally Whitman: doing well Objective - Latest Vital Signs Latest vital signs: Vital Signs Temp Pulse Resp BP BP Pulse Ox 05/20/20 07:55 98.2 F 85 18 91/59 05/20/20 04:00 98.3 F 99 18 117/74 05/19/20 23:00 98.3 F 90 16 117/55 98 05/19/20 22:15 88 16 134/72 05/19/20 21:45 91 16 133/67 05/19/20 21:30 97 16 126/65 05/19/20 21:15 95 16 129/67 05/19/20 21:00 95 16 115/69 05/19/20 20:45 98.3 F 94 16 113/68 05/19/20 18:17 97.4 F L 109 H 20 126/89 05/19/20 17:45 97.4 F L 109 H 16 126/89 Intake and Output 05/19/20 05/20/20 05/20/20 22:59 06:59 14:59 Output Total 700 Balance -700 Output: Estimated Blood Loss 700 Other: # Voids 2 1 Weight 127.006 kg - Exam Extremities: Present: normal, edema Abdomen: Present: normal appearance Uterus: Present: normal, firm - Labs Labs: Abnormal Lab Results - Last 24 Hours (Table) 05/19/20 05/20/20 Range/Units 17:50 03:55 WBC 14.1 H (3.8-10.6) k/uL Hgb 11.1 L (11.4-16.0) gm/dL RDW 15.7 H 15.7 H (11.5-15.5) % Neutrophils # 11.5 H (1.3-7.7) k/uL Assessment and Plan (1) Status post vaginal delivery Current Visit: Yes Status: Acute Code(s): [id number] - SNOMED Code(s): 568451490 (2) Active labor at term Current Visit: Yes Status: Acute Code(s): [id number] - SNOMED Code(s): 20679 009 (3) Spontaneous rupture of membranes Current Visit: Yes Status: Acute Code(s): QYI4653 - SNOMED Code(s): 629205638 Plan: Lele is doing well , plan to continue routine Postpartym care and plan discharge home tomorrow am
[2020-05-21 00:20] VITALS: RESP 18
[2020-05-21 08:01] VITALS: BP 111/62; PULSE 90; TEMP 98.5
[2020-05-21] MEDS: SENNOSIDES-DOCUSATE SODIUM 1 EACH TAB PO SCH (08:05)
--- NOTE | 2020-05-21 08:33 | P.DS ---
Providers Date of admission: 05/19/20 17:25 Expected date of discharge: 05/21/20 Attending physician: Moose Mueller Primary care physician: Stated None - Discharge Diagnosis(es) (1) Status post vaginal delivery Current Visit: Yes Status: Acute (2) Active labor at term Current Visit: Yes Status: Acute (3) Spontaneous rupture of membranes Current Visit: Yes Status: Acute Hospital Course: his 25-year-old 2 para 0010 presented to labor and delivery at 38-4/7 weeks in active labor. patient had been receiving routine care which had been essentially uncomplicated. Patient was admitted to labor and delivery made quick progress to complete began pushing and had a normal spontaneous vaginal delivery of a viable female weight of 8 lbs. 1 oz. atient did sustain a second-degree midline vaginal laceration which was repaired in the usual fashion with 3-0 chromic catgut. Patient's course has been uneventful. On this day #2 she is ambulating and voiding without difficulty. She is tolerating regular diet without nausea or vomiting. She states her lochia is moderate. She would like discharge home. Patient Condition at Discharge: Good Plan - Discharge Summary New Discharge Prescriptions: No Action Pnv,Calcium 72/Iron/Folic Acid [ Plus Tablet] 1 each PO DAILY Iron 18 mg PO DAILY Discharge Medication List Iron 18 mg PO DAILY 05/19/20 [History] Pnv,Calcium 72/Iron/Folic Acid [ Plus Tablet] 1 each PO DAILY 05/19/20 [History] Follow up Appointment(s)/Referral(s): Reanna Barnhart DO [Doctor of Osteopathic Medicine] - 4 Weeks Patient Instructions/Handouts: Vaginal Delivery (DC), Vaginal Delivery (GEN) Activity/Diet/Wound Care/Special Instructions: Patient may expect. Like bleeding for 4-6 weeks postdelivery. If patient notices bleeding to be heavier have a follow-up or she is urged to call the office prior to her visit. [id number] ibuprofen as needed for pain. No intercourse or tub baths until 6 weeks post . Discharge Disposition: HOME SELF-CARE
== END 2020-05-21 12:26 | disposition home or self-care (01) | DRG 807 ==
LOC: FBPOP 16:45 → 4FBP 17:25
PROVIDERS: ADMIT Obstetrics & Gynecology; ATTEND Obstetrics & Gynecology
PROC: 10E0XZZ Delivery of Products of Conception, External Approach (ICD-10-PCS; principal; 2020-05-19)
PROC: 0KQM0ZZ Repair Perineum Muscle, Open Approach (ICD-10-PCS; 2020-05-19)
DX: O70.1 Second degree perineal laceration during delivery (principal); Z37.0 Single live birth; Z3A.38 38 weeks gestation of pregnancy; Z87.440 Personal history of urinary (tract) infections; Z79.899 Other long term (current) drug therapy; Z88.0 Allergy status to penicillin; Z87.59 Personal history of other complications of pregnancy, childbirth and the puerperium
CPT/HCPCS: 59025; 84112; 85025; 86850; 86900; 86901; 99213

== ENCOUNTER 2020-08-31 12:56 | Emergency (ER) | payer BC, OTHER ==
[2020-08-31 13:09] VITALS: BP 140/88; TEMP 98.2
--- NOTE | 2020-08-31 13:19 | ED ---
General Adult HPI - General Chief complaint: Extremity Injury, Lower Stated complaint: L Knee Pain Time Seen by Provider: 08/31/20 13:04 Source: patient, RN notes reviewed Mode of arrival: ambulatory Limitations: no limitations - History of Present Illness Initial comments: Patient is a pleasant 25-year-old female presenting to the emergency Department with complaints of left knee pain. Patient states she pulled it on Tuesday. Patient states the description of the incident is typical for her to describe. Patient has had discomfort since then, worse since 2 days ago. Patient has discomfort to the left lateral lower knee. No calf pain or Swelling. No chest pain or dyspnea. No swelling of the knee. No fever or redness. No history of chronic knee problems. - Related Data Home Medications Medication Instructions Recorded Confirmed Acetaminophen [Tylenol] 1,000 mg PO Q12H PRN 08/31/20 08/31/20 Previous Rx's Medication Instructions Recorded Ibuprofen [Motrin] 600 mg PO Q6HR PRN #20 tab 08/31/20 Allergies Allergy/AdvReac Type Severity Reaction Status Date / Time amoxicillin Allergy Rash/Hives Verified 08/31/20 13:35 Review of Systems ROS Statement: Those systems with pertinent positive or pertinent negative responses have been documented in the HPI. ROS Other: All systems not noted in ROS Statement are negative. Constitutional: Denies: fever Eyes: Denies: eye pain ENT: Denies: ear pain Respiratory: Denies: cough Cardiovascular: Denies: chest pain Endocrine: Denies: fatigue Gastrointestinal: Denies: abdominal pain Genitourinary: Denies: dysuria Musculoskeletal: Reports: as per HPI. Denies: back pain Skin: Denies: rash Neurological: Denies: weakness Past Medical History Past Medical History: No Reported History History of Any Multi-Drug Resistant Organisms: None Reported Past Surgical History: Orthopedic Surgery Additional Past Surgical History / Comment(s): meniscus repair (L) knee Past Psychological History: No Psychological Hx Reported Smoking Status: Never smoker Past Alcohol Use History: Occasional Past Drug Use History: None Reported - Past Family History Mother History Unknown: Yes General Exam Limitations: no limitations General appearance: alert, in no apparent distress Head exam: Present: normocephalic Eye exam: Present: normal appearance Neck exam: Present: normal inspection Respiratory exam: Present: normal lung sounds bilaterally Cardiovascular Exam: Present: regular rate, normal rhythm GI/Abdominal exam: Present: soft. Absent: tenderness Extremities exam: Present: other (Patient does have tenderness of the area of the proximal fibula. No swelling. No calf pain or popliteal pain. No swelling.) Neurological exam: Present: alert Psychiatric exam: Present: normal affect, normal mood Skin exam: Present: normal color Course Vital Signs 08/31/20 13:07 Temperature 98.2 F Pulse Rate 108 H Respiratory 16 Rate Blood Pressure 140/88 O2 Sat by Pulse 99 Oximetry Medical Decision Making - Medical Decision Making Patient reevaluated and updated. - Radiology Data Radiology results: image reviewed (Left knee x-ray reveals no acute process) Disposition Clinical Impression: Knee sprain Disposition: HOME SELF-CARE Condition: Stable Instructions (If sedation given, give patient instructions): Knee Sprain (ED) Additional Instructions: Please follow-up with your primary care physician in the next couple days for recheck. Return for increased pain, swelling, redness, fevers, worsening or changing symptoms or other concerns. Prescription for Motrin 600 has been sent to your pharmacy Prescriptions: Ibuprofen [Motrin] 600 mg PO Q6HR PRN #20 tab PRN Reason: Pain Is patient prescribed a controlled substance at d/c from ED?: No Referrals: Ilya Rodriguez MD [Primary Care Provider] - 1-2 days Time of Disposition: 14:23
--- NOTE | 2020-08-31 13:47 | XR ---
EXAMINATION TYPE: XR knee complete LT DATE OF EXAM: 08/31/2020 COMPARISON: None HISTORY: Left knee locked up 6 days ago TECHNIQUE: 2 view left knee FINDINGS: Joint spaces are preserved. No joint effusion is evident. No acute fractures or dislocation s are evident. MRI is available if additional evaluation of the soft tissues of the of benefit. Follow-up study 7-10 days from acute trauma could be performed for continued pain. IMPRESSION: 1. Normal three-view left knee
[2020-08-31] MEDS ORDERED: IBUPROFEN 600 MG STARTER PACK 4 TAB BTL PO STA (14:19)
[2020-08-31 14:45] VITALS: PULSE 98; RESP 18
== END 2020-08-31 14:44 | disposition home or self-care (01) ==
LOC: EC 12:56
DX: S83.92XA Sprain of unspecified site of left knee, initial encounter (principal); Z88.0 Allergy status to penicillin; Z98.890 Other specified postprocedural states; X58.XXXA Exposure to other specified factors, initial encounter
CPT/HCPCS: 99283

== ENCOUNTER → 2020-10-15 | Outpatient (CLI) | payer BC, OTHER | END | disposition home or self-care (01) | LOC: LABWHC1 16:15 | PROVIDERS: ATTEND Emergency Medicine | DX: Z20.822 Contact with and (suspected) exposure to COVID-19 (principal) | CPT/HCPCS: U0003; C9803; U0005 ==

== ENCOUNTER 2021-03-08 18:55 | Emergency (ER) | payer BC, OTHER ==
[2021-03-08 19:00] VITALS: BP 127/86; PULSE 123; RESP 16; TEMP 98.7
[2021-03-08] MEDS ORDERED: LIDOCAINE 1% INJ 10MG/ML (20 ML MDV) SQ ONE (19:09)
--- NOTE | 2021-03-08 19:37 | ED ---
Skin/Abscess/FB HPI - General Chief complaint: Skin/Abscess/Foreign Body Stated complaint: Lump on neck Time Seen by Provider: 03/08/21 19:01 Source: patient, RN notes reviewed Mode of arrival: ambulatory Limitations: no limitations - History of Present Illness Initial comments: Patient is a 25-year-old female that presents to emergency department with a right neck nodule. She notes that she thought was a pimple at first squeezed it but is since grown in size and become tender. She notes that she has squeezed several other times with nothing expressed from it. She came in to get it drained. She denied other symptoms or complaints at this time. She denied any chest pain shortness of breath headache nausea vomiting diarrhea constipation fever fatigue chills. - Related Data Home Medications Medication Instructions Recorded Confirmed Acetaminophen [Tylenol] 1,000 mg PO Q12H PRN 08/31/20 08/31/20 Previous Rx's Medication Instructions Recorded Ibuprofen [Motrin] 600 mg PO Q6HR PRN #20 tab 08/31/20 Sulfamethox-Tmp 800-160Mg [Bactrim 1 each PO Q12HR #20 tab 03/08/21 Ds] Allergies Allergy/AdvReac Type Severity Reaction Status Date / Time amoxicillin Allergy Rash/Hives Verified 03/08/21 19:00 Review of Systems ROS Statement: Those systems with pertinent positive or pertinent negative responses have been documented in the HPI. ROS Other: All systems not noted in ROS Statement are negative. Past Medical History Past Medical History: No Reported History History of Any Multi-Drug Resistant Organisms: None Reported Past Surgical History: Orthopedic Surgery Additional Past Surgical History / Comment(s): meniscus repair (L) knee Past Psychological History: No Psychological Hx Reported Smoking Status: Never smoker Past Alcohol Use History: Occasional Past Drug Use History: None Reported - Past Family History Mother History Unknown: Yes General Exam Limitations: no limitations General appearance: alert, in no apparent distress, obese Head exam: Present: atraumatic, normocephalic, normal inspection Eye exam: Present: normal appearance, PERRL, EOMI. Absent: scleral icterus, conjunctival injection, periorbital swelling Neck exam: Present: normal inspection, other (Right-sided area of soft tissue swelling small 1 cm nodule very minimal fluctuance.) Respiratory exam: Present: normal lung sounds bilaterally. Absent: respiratory distress, wheezes, rales, rhonchi, stridor Cardiovascular Exam: Present: regular rate, normal rhythm, normal heart sounds. Absent: systolic murmur, diastolic murmur, rubs, gallop, clicks Extremities exam: Present: normal inspection, full ROM, normal capillary refill. Absent: tenderness, pedal edema, joint swelling, calf tenderness Neurological exam: Present: alert, oriented X3 Psychiatric exam: Present: normal affect, normal mood Skin exam: Present: warm, dry, intact, normal color. Absent: rash Course Vital Signs 03/08/21 18:57 Temperature 98.7 F Pulse Rate 123 H Respiratory 16 Rate Blood Pressure 127/86 O2 Sat by Pulse 98 Oximetry Procedures - Incision & Drainage Consent Obtained: verbal consent Site: neck (Right side) Size (cm): 1 Anesthetic Used: lidocaine 1% Amount (mLs): 5 I&D Cleaning Method: Betadine Sterile Field Used?: Yes Scalpel Used: #11 Needle Aspiration Performed?: No Irrigation Performed?: No I&D Drainage Obtained: Blood Culture Obtained?: No Patient Tolerated Procedure: well Medical Decision Making - Medical Decision Making 25 she'll female with a right-sided neck nodule/soft tissue swelling possibly abscess. Lidocaine ordered. Patient tolerated incision and drainage well. Minimal drainage expressed. Most likely soft tissue swelling from patient's wheezing. Patient be given antibiotics take home. Case discussed with Dr. Sanchez, patient discharge home with follow-up to primary care. Disposition Clinical Impression: Abscess Disposition: HOME SELF-CARE Condition: Stable Instructions (If sedation given, give patient instructions): Abscess Incision and Drainage (ED), Abscess (ED) Additional Instructions: Please return to the Emergency Department if symptoms worsen or any other concerns. Follow-up with primary care next several days. Take antibiotics as prescribed until complete. Is patient prescribed a controlled substance at d/c from ED?: No Referrals: Ilya Rodriguez MD [Primary Care Provider] - 1-2 days Time of Disposition: 19:36
== END 2021-03-08 19:47 | disposition home or self-care (01) ==
LOC: EC 18:55
DX: L02.11 Cutaneous abscess of neck (principal); E66.9 Obesity, unspecified; Z68.41 Body mass index [BMI] 40.0-44.9, adult
CPT/HCPCS: 10060; 99283; J2001

== ENCOUNTER 2021-03-12 15:06 | Emergency (ER) | payer OTHER ==
[2021-03-12 15:09] VITALS: BP 140/81; RESP 20; TEMP 99.5
--- NOTE | 2021-03-12 15:39 | ED ---
Skin/Abscess/FB HPI - General Chief complaint: Skin/Abscess/Foreign Body Stated complaint: Abscess Time Seen by Provider: 03/12/21 15:15 Source: patient Mode of arrival: ambulatory Limitations: no limitations - History of Present Illness Initial comments: 26-year-old male presents emergency Department with a chief complaint of an abscess. Patient reports she was at emergency department several days ago for an abscess on the right side of the neck and was discharged with antiemetics. Patient reports she was not given thorough instructions on how to care for the wound afterward. States the wound is staying exactly the same size and not getting any better. She denies any fever chills nausea vomiting. She continues to report some yellow pustular discharge. Denies any limited range of motion in the neck. It is tender to touch. Denies surrounding erythema. - Related Data Home Medications Medication Instructions Recorded Confirmed Acetaminophen [Tylenol] 1,000 mg PO Q12H PRN 08/31/20 08/31/20 Previous Rx's Medication Instructions Recorded Ibuprofen [Motrin] 600 mg PO Q6HR PRN #20 tab 08/31/20 Sulfamethox-Tmp 800-160Mg [Bactrim 1 each PO Q12HR #20 tab 03/08/21 Ds] Allergies Allergy/AdvReac Type Severity Reaction Status Date / Time amoxicillin Allergy Rash/Hives Verified 03/12/21 15:07 Review of Systems ROS Statement: Those systems with pertinent positive or pertinent negative responses have been documented in the HPI. ROS Other: All systems not noted in ROS Statement are negative. Past Medical History Past Medical History: No Reported History History of Any Multi-Drug Resistant Organisms: None Reported Past Surgical History: Orthopedic Surgery Additional Past Surgical History / Comment(s): meniscus repair (L) knee Past Psychological History: No Psychological Hx Reported Smoking Status: Never smoker Past Alcohol Use History: Occasional Past Drug Use History: None Reported - Past Family History Mother History Unknown: Yes General Exam Limitations: no limitations General appearance: alert, in no apparent distress, obese Head exam: Present: atraumatic, normocephalic, normal inspection Eye exam: Present: normal appearance, PERRL, EOMI Pupils: Present: normal accommodation ENT exam: Present: normal exam, normal oropharynx, mucous membranes moist Neck exam: Present: full ROM. Absent: normal inspection (Abscess measuring 1 cm x 3 cm of the right side of the neck. It does have pustular drainage with no surrounding erythema), tenderness (Tenderness at the abscess), lymphadenopathy Respiratory exam: Present: normal lung sounds bilaterally. Absent: respiratory distress Cardiovascular Exam: Present: regular rate, normal rhythm, normal heart sounds Extremities exam: Present: normal inspection, full ROM. Absent: tenderness Back exam: Present: normal inspection, full ROM Neurological exam: Present: alert, oriented X3 Psychiatric exam: Present: normal affect, normal mood Skin exam: Present: warm, dry, intact, normal color Course Vital Signs 03/12/21 15:07 Temperature 99.5 F Pulse Rate 133 H Respiratory 20 Rate Blood Pressure 140/81 O2 Sat by Pulse 95 Oximetry Medical Decision Making - Medical Decision Making 26-year-old female presents emergency Department with chief complaint of an abscess. Medical records reviewed, she has an abscess on the right side of her neck that is currently draining. No surrounding cellulitis. I will start the patient on Keflex in addition to the Bactrim. I advised her to apply warm compresses multiple times per day. Advised to follow-up with a primary care physician. Return parameters were thoroughly discussed with patient's attending ago. Case discussed with physician. Considering she has a patient treatment failure, did offer admission, she declined. Disposition Clinical Impression: Abscess Disposition: HOME SELF-CARE Condition: Stable Instructions (If sedation given, give patient instructions): Abscess (ED), Abscess Incision and Drainage (DC) Additional Instructions: Please return to the Emergency Department if symptoms worsen or any other concerns. Is patient prescribed a controlled substance at d/c from ED?: No Referrals: Ilya Rodriguez MD [Primary Care Provider] - 1-2 days Time of Disposition: 15:38
[2021-03-12] MEDS ORDERED: CEPHALEXIN 500MG STARTER PACK 4 CAP BTL PO STA (15:48)
[2021-03-12 15:50] VITALS: PULSE 99
== END 2021-03-12 15:50 | disposition home or self-care (01) ==
LOC: EC 15:06
DX: L02.11 Cutaneous abscess of neck (principal)
CPT/HCPCS: 99282

== ENCOUNTER 2021-07-31 01:56 | Emergency (ER) | payer OTHER ==
--- NOTE | 2021-07-31 04:48 | ED ---
Recheck HPI - General Source: patient, RN notes reviewed, old records reviewed Mode of arrival: ambulatory Limitations: no limitations - History of Present Illness MD Complaint: abnormal lab -: days(s) Returns Today for: persistent/worsening pain related to initial visit Symptoms Since Prior Visit: no new symptoms, worsening pain Associated Symptoms: fever, chills, shortness of breath, abdominal pain Treatments Prior to Arrival: other medications, Given Antibiotics on <James Galloway - Last Filed: 07/31/21 06:55> <James Lutz - Last Filed: 07/31/21 10:05> - General Chief Complaint: Upper Respiratory Infection Stated Complaint: LESLIE, Covid+ Time Seen by Provider: 07/31/21 04:23 - History of Present Illness Initial Comments: This is a 26-year-old female ER today. Patient has no history of coronavirus for about 8 days. Patient has had an ER visit in urgent care visit. In the ER she was told she had a cold coronavirus with pneumonia as well. Patient states she's been feeling weak fatigue that persistent fever. States her heart rate gets very high especially with exertion (James Galloway) - Related Data Home Medications Medication Instructions Recorded Confirmed Acetaminophen [Tylenol] 1,000 mg PO Q6H PRN 08/31/20 07/31/21 Albuterol Sulfate [Albuterol 2 puff INHALATION RT-QID PRN 07/31/21 07/31/21 Sulfate Hfa] Benzonatate [Tessalon Perles] 100 mg PO TID PRN 07/31/21 07/31/21 Doxycycline Monohydrate 100 mg PO BID 07/31/21 07/31/21 Is[place]om 0.15-0.03 1 tab PO DAILY 07/31/21 07/31/21 Previous Rx's Medication Instructions Recorded Dexamethasone [Decadron] 6 mg PO DAILY #7 tablet 07/31/21 Allergies Allergy/AdvReac Type Severity Reaction Status Date / Time amoxicillin Allergy Rash/Hives Verified 07/31/21 08:02 Review of Systems ROS Other: All systems not noted in ROS Statement are negative. <James Galloway - Last Filed: 07/31/21 06:55> ROS Other: All systems not noted in ROS Statement are negative. <James Lutz - Last Filed: 07/31/21 10:05> ROS Statement: Those systems with pertinent positive or pertinent negative responses have been documented in the HPI. Past Medical History Past Medical History: No Reported History Additional Past Medical History / Comment(s): COVID 07/28 History of Any Multi-Drug Resistant Organisms: None Reported Past Surgical History: Orthopedic Surgery Additional Past Surgical History / Comment(s): meniscus repair (L) knee Past Psychological History: No Psychological Hx Reported Smoking Status: Never smoker Past Alcohol Use History: Occasional Past Drug Use History: None Reported - Past Family History Mother History Unknown: Yes <James Galloway Last Filed: 07/31/21 06:55> General Exam Limitations: no limitations General appearance: alert, in no apparent distress, anxious Head exam: Present: atraumatic, normocephalic, normal inspection Eye exam: Present: normal appearance, PERRL, EOMI. Absent: scleral icterus, conjunctival injection, periorbital swelling ENT exam: Present: normal exam, mucous membranes moist Neck exam: Present: normal inspection. Absent: tenderness, meningismus, lymphadenopathy Respiratory exam: Present: normal lung sounds bilaterally. Absent: respiratory distress, wheezes, rales, rhonchi, stridor Cardiovascular Exam: Present: normal rhythm, tachycardia, normal heart sounds. Absent: systolic murmur, diastolic murmur, rubs, gallop, clicks GI/Abdominal exam: Present: soft, normal bowel sounds. Absent: distended, tenderness, guarding, rebound, rigid Extremities exam: Present: normal inspection, full ROM, normal capillary refill. Absent: tenderness, pedal edema, joint swelling, calf tenderness Back exam: Present: normal inspection Neurological exam: Present: alert, oriented X3, CN II-XII intact Psychiatric exam: Present: normal affect, normal mood Skin exam: Present: warm, dry, intact, normal color. Absent: rash <James Galloway - Last Filed: 07/31/21 06:55> Course <James Galloway - Last Filed: 07/31/21 06:55> Vital Signs 07/31/21 07/31/21 07/31/21 02:06 06:02 09:37 Temperature 99.1 F 98.5 F Pulse Rate 136 H 112 H 95 Respiratory 24 20 18 Rate Blood Pressure 145/97 127/66 116/75 O2 Sat by Pulse 98 98 99 Oximetry - Reevaluation(s) Reevaluation #1: 07/31/21 06:59 Medical record is reviewed (James Galloway) Reevaluation #2: 07/31/21 06:59 Patient symptoms are improved with heart rate improvement here in the ER with fluid resuscitation and fever control (James Galloway) Reevaluation #3: 07/31/21 06:59 Patient would like to do antibiotic treatment (James Galloway) Medical Decision Making - Lab Data Result diagrams: 07/31/21 05:43 07/31/21 05:43 <James Galloway - Last Filed: 07/31/21 06:55> - Lab Data Result diagrams: 07/31/21 05:43 07/31/21 05:43 <James Lutz - Last Filed: 07/31/21 10:05> - Medical Decision Making 26 female to the emergency department today. Patient presents today for evaluation regards to symptoms of coronavirus, patient is positive history of coronavirus will be given antibody treatment (James Galloway) - Lab Data Lab Results 07/31/21 07/31/21 07/31/21 Range/Units 05:43 05:43 05:43 WBC 4.6 (3.8-10.6) k/uL RBC 5.22 (3.80-5.40) m/uL Hgb 12.9 (11.4-16.0) gm/dL Hct 41.4 (34.0-46.0) % MCV 79.3 L (80.0-100.0) fL MCH 24.7 L (25.0-35.0) pg MCHC 31.2 (31.0-37.0) g/dL RDW 13.8 (11.5-15.5) % Plt Count 200 (150-450) k/uL MPV 9.2 Neutrophils % 46 % Lymphocytes % 45 % Monocytes % 4 % Eosinophils % 1 % Basophils % 1 % Neutrophils # 2.1 (1.3-7.7) k/uL Lymphocytes # 2.1 (1.0-4.8) k/uL Monocytes # 0.2 (0-1.0) k/uL Eosinophils # 0.0 (0-0.7) k/uL Basophils # 0.1 (0-0.2) k/uL PT 10.9 (9.0-12.0) sec INR 1.0 (<1.2) APTT 21.9 L (22.0-30.0) sec Sodium 139 (137-145) mmol/L Potassium 5.0 (3.5-5.1) mmol/L Chloride 103 (98-107) mmol/L Carbon Dioxide 25 (22-30) mmol/L Anion Gap 11 mmol/L BUN 13 (7-17) mg/dL Creatinine 1.02 (0.52-1.04) mg/dL Est GFR (CKD-EPI)AfAm 88 (>60 ml/min/1.73 sqM) Est GFR (CKD-EPI)NonAf 76 (>60 ml/min/1.73 sqM) Glucose 103 H (74-99) mg/dL Plasma Lactic Acid Wayne (0.7-2.0) mmol/L Calcium 8.9 (8.4-10.2) mg/dL Magnesium 1.8 (1.6-2.3) mg/dL Total Bilirubin 1.1 (0.2-1.3) mg/dL AST 50 H (14-36) U/L ALT 16 (4-34) U/L Alkaline Phosphatase 66 (38-126) U/L Lactate Dehydrogenase 1146 H (313-618) U/L C-Reactive Protein 2.5 H (<1.0) mg/dL NT-Pro-B Natriuret Pep pg/mL Total Protein 8.7 H (6.3-8.2) g/dL Albumin 4.2 (3.5-5.0) g/dL 07/31/21 07/31/21 Range/Units 05:43 05:43 WBC (3.8-10.6) k/uL RBC (3.80-5.40) m/uL Hgb (11.4-16.0) gm/dL Hct (34.0-46.0) % MCV (80.0-100.0) fL MCH (25.0-35.0) pg MCHC (31.0-37.0) g/dL RDW (11.5-15.5) % Plt Count (150-450) k/uL MPV Neutrophils % % Lymphocytes % % Monocytes % % Eosinophils % % Basophils % % Neutrophils # (1.3-7.7) k/uL Lymphocytes # (1.0-4.8) k/uL Monocytes # (0-1.0) k/uL Eosinophils # (0-0.7) k/uL Basophils # (0-0.2) k/uL PT (9.0-12.0) sec INR (<1.2) APTT (22.0-30.0) sec Sodium (137-145) mmol/L Potassium (3.5-5.1) mmol/L Chloride (98-107) mmol/L Carbon Dioxide (22-30) mmol/L Anion Gap mmol/L BUN (7-17) mg/dL Creatinine (0.52-1.04) mg/dL Est GFR (CKD-EPI)AfAm (>60 ml/min/1.73 sqM) Est GFR (CKD-EPI)NonAf (>60 ml/min/1.73 sqM) Glucose (74-99) mg/dL Plasma Lactic Acid Wayne 1.2 (0.7-2.0) mmol/L Calcium (8.4-10.2) mg/dL Magnesium (1.6-2.3) mg/dL Total Bilirubin (0.2-1.3) mg/dL AST (14-36) U/L ALT (4-34) U/L Alkaline Phosphatase (38-126) U/L Lactate Dehydrogenase (313-618) U/L C-Reactive Protein (<1.0) mg/dL NT-Pro-B Natriuret Pep <11 pg/mL Total Protein (6.3-8.2) g/dL Albumin (3.5-5.0) g/dL Disposition Is patient prescribed a controlled substance at d/c from ED?: No <James Galloway - Last Filed: 07/31/21 06:55> <James Lutz - Last Filed: 07/31/21 10:05> Clinical Impression: Coronavirus infection, Pneumonia due to COVID-19 virus Disposition: HOME SELF-CARE Condition: Good Instructions (If sedation given, give patient instructions): Coronavirus Disease 2019 (COVID-19) Prescriptions: Dexamethasone [Decadron] 6 mg PO DAILY #7 tablet Referrals: Ilya Rodriguez MD [Primary Care Provider] - 1-2 days
[2021-07-31] MEDS: ACETAMINOPHEN TAB 500 MG TAB PO STA (05:14)
--- NOTE | 2021-07-31 05:38 | XR ---
EXAMINATION TYPE: XR chest 1V portable DATE OF EXAM: 07/31/2021 COMPARISON: 07/30/2019 HISTORY: Cough and congestion TECHNIQUE: Single view FINDINGS: There is some pulmonary mild interstitial edema. Heart size is normal. There is no pleural effusion. IMPRESSION: Mild pulmonary interstitial pneumonia appears new compared to old exam.
[2021-07-31 05:50] LABS: Basophils # (A) 0.1 k/uL (0-0.2); Basophils % (A) 1 %; Eosinophils % (A) 1 %; HCT 41.4 % (34.0-46.0); HGB 12.9 gm/dL (11.4-16.0); Lymphocytes # (A) 2.1 k/uL (1.0-4.8); Lymphocytes % (A) 45 %; MCH 24.7 pg (25.0-35.0); MCHC 31.2 g/dL (31.0-37.0); MCV 79.3 fL (80.0-100.0); Mean Platelet Volume 9.2; Monocytes # (A) 0.2 k/uL (0-1.0); Monocytes % (A) 4 %; Neutrophils # (A) 2.1 k/uL (1.3-7.7); Neutrophils % (A) 46 %; Platelet Count 200 k/uL (150-450); RBC 5.22 m/uL (3.80-5.40); RDW 13.8 % (11.5-15.5); WBC 4.6 k/uL (3.8-10.6)
[2021-07-31] MEDS: KETOROLAC 15 MG/ML 1 ML VIAL IVP STA (05:58)
[2021-07-31] MEDS: DEXAMETHASONE SOD PHOSPHATE 10 MG/ML 1 ML VIAL IVP STA (05:59)
[2021-07-31 06:10] LABS: Albumin 4.2 g/dL (3.5-5.0); Calcium 8.9 mg/dL (8.4-10.2); Magnesium 1.8 mg/dL (1.6-2.3); Total Bilirubin 1.1 mg/dL (0.2-1.3); Total Protein 8.7 g/dL (6.3-8.2)
[2021-07-31 06:11] LABS: Partial Thromboplastin Time 21.9 sec (22.0-30.0); Prothrombin Time 10.9 sec (9.0-12.0)
[2021-07-31 07:26] LABS: C Reactive Protein 2.5 mg/dL (<1.0)
[2021-07-31] MEDS: ALBUTEROL HFA INHALER INHALATION STA (07:28)
[2021-07-31] MEDS: BAMLANIVIMAB (EUA) 700 MG, ETESEVIMAB (EUA) 1,400 MG in SODIUM CHLORIDE 0.9% 100 ML IVPB ONE (08:05)
[2021-07-31] MEDS: SODIUM CHLORIDE 0.9% 50 ML IVPB ONE (08:35)
[2021-07-31 09:55] VITALS: BP 116/75; PULSE 95; RESP 18; TEMP 98.5
== END 2021-07-31 10:00 | disposition home or self-care (01) ==
LOC: EC 01:56
DX: U07.1 COVID-19 (principal); J12.82 Pneumonia due to coronavirus disease 2019
CPT/HCPCS: 36415; 94640; 83880; 80053; 83605; 83615; 83735; 85025; 85610; 85730; 86140; 71045; 99285; 96374; 96375; J1100; J1885; J3490

== ENCOUNTER 2023-01-29 10:41 | Inpatient (IN) | payer BC, OTHER ==
[2023-01-29] MEDS ORDERED: miSOPROStoL 200 MCG TAB PO PRN (11:12)
[2023-01-29] MEDS ORDERED: OXYTOCIN 10 UNIT/ML 1 ML VIAL IM PRN (11:12)
[2023-01-29] MEDS ORDERED: TRANEXAMIC 1,000 MG/100ML-NACL 1,000 MG in EMPTY BAG 1 BAG IV PRN (11:12)
[2023-01-29] MEDS ORDERED: CARBOPROST TROMETHAMINE 250 MCG/ML 1 ML AMP IM PRN (11:12)
[2023-01-29] MEDS ORDERED: METHYLERGONOVINE 0.2 MG/ML 1 ML AMP IM PRN (11:12)
[2023-01-29] MEDS ORDERED: TERBUTALINE 1 MG/ML VIAL SQ PRN (11:12)
[2023-01-29] MEDS ORDERED: LIDOCAINE 0.5% (PF) 5 MG/ML (50 ML SDV) SQ PRN (11:12)
[2023-01-29] MEDS ORDERED: LACTATED RINGERS 1,000 ML IV SCH (11:15)
[2023-01-29 11:53] LABS: Basophils % (A) 0 %; Eosinophils # (A) 0.1 k/uL (0-0.7); Eosinophils % (A) 1 %; HCT 35.6 % (34.0-46.0); HGB 11.6 gm/dL (11.4-16.0); Hypochromasia Slight; Lymphocytes # (A) 1.3 k/uL (1.0-4.8); Lymphocytes % (A) 15 %; MCH 26.6 pg (25.0-35.0); MCHC 32.5 g/dL (31.0-37.0); Mean Platelet Volume 10.5; Monocytes # (A) 0.2 k/uL (0-1.0); Monocytes % (A) 3 %; Neutrophils # (A) 6.7 k/uL (1.3-7.7); Neutrophils % (A) 79 %; Platelet Count 184 k/uL (150-450); RBC 4.35 m/uL (3.80-5.40); RDW 15.3 % (11.5-15.5); WBC 8.4 k/uL (3.8-10.6)
--- NOTE | 2023-01-29 12:47 | P.HPOB ---
History of Present Illness H&P Date: 01/29/23 Chief Complaint: IUP at 37-0/7 weeks, active labor This is a 19-year-old at 37 weeks of gestation that presents to labor and delivery with complaints of regular contractions. Patient states she was chiara through the evening but was able to sleep through the night. When she woke this morning she states contractions were more uncomfortable but still irregular. Patient presented to labor and delivery and was noted to be 4-5 cm. Patient has been receiving routine care with myself which is been essentially uncomplicated. Patient has a known blood type of O+, rubella status immune, hepatitis B surface antigen negative, HIV negative, RPR is nonreactive, group beta strep is pending. Review of Systems Constitutional: Denies chills, Denies fatigue, Denies fever Ears, nose, mouth and throat: Denies headache Cardiovascular: Reports leg edema Respiratory: Denies dyspnea Gastrointestinal: Denies constipation, Denies diarrhea, Denies nausea, Denies vomiting Genitourinary: Reports Past Medical History Past Medical History: No Reported History Additional Past Medical History / Comment(s): COVID 07/28 History of Any Multi-Drug Resistant Organisms: None Reported Past Surgical History: Orthopedic Surgery Additional Past Surgical History / Comment(s): meniscus repair (L) knee Smoking Status: Never smoker - Past Family History Mother History Unknown: Yes Medications and Allergies Home Medications Medication Instructions Recorded Confirmed Type Aspirin [Children's Aspirin] 81 mg PO DAILY 01/29/23 01/29/23 History Ferrous Sulfate [Iron (65 MG 65 mg PO DAILY 01/29/23 01/29/23 History Elemental)] Vit No.179/Iron/Folic 1 each PO DAILY 01/29/23 01/29/23 History [ Tablet] Allergies Allergy/AdvReac Type Severity Reaction Status Date / Time amoxicillin Allergy Rash/Hives Verified 01/29/23 10:54 Exam Osteopathic Statement: *. No significant issues noted on an osteopathic structural exam other than those noted in the History and Physical/Consult. Vital Signs Temp Pulse Resp BP 01/29/23 12:26 98.1 F 99 18 122/69 Intake and Output 01/28/23 01/29/23 01/29/23 22:59 06:59 14:59 Other: Weight 144.106 kg Targeted physical exam is performed in this date and webmaster a well-nourished well-developed female in no acute distress, breathing is nonlabored, heart has a regular rate and rhythm, abdomen is obese and gravid, on vaginal exam she was noted to be 4-5 cm on admission upon my exam she was 9 cm and -1 station. heart tones were noted to be category 1 and she is chiara about every 3-4 minutes. Monitoring was difficult secondary to position and maternal obesity. Results Result Diagrams: 01/29/23 11:40 Assessment and Plan (1) 37 weeks gestation of Current Visit: Yes Status: Acute Code(s): Z3A.37 - 37 WEEKS GESTATION OF SNOMED Code(s): 61454651 (2) Active labor at term Current Visit: No Status: Acute Code(s): YTI7500 - SNOMED Code(s): 58311610 Plan: 27-year-old 011 at 37 weeks of gestation presents in active labor. Patient is admitted. Patient declines epidural. Given unknown GBS status will initiate IV antibiotics. Anticipate spontaneous vaginal delivery.
[2023-01-29] MEDS ORDERED: HYDROCORTISONE 2.5% RECTAL CREAM 30 GM TUBE RECTAL PRN (12:49)
[2023-01-29] MEDS ORDERED: ZOLPIDEM 5 MG TAB PO PRN (12:49)
[2023-01-29] MEDS ORDERED: SIMETHICONE 80 MG CHEWABLE PO PRN (12:49)
[2023-01-29] MEDS ORDERED: LANOLIN CREAM 5 GM TUBE TOPICAL PRN (12:49)
[2023-01-29] MEDS ORDERED: diphenhydrAMINE 50 MG CAP PO PRN (12:49)
[2023-01-29] MEDS ORDERED: BENZOCAINE/MENTHOL SPRAY 1 GM/SPRAY AEROSOL TOPICAL PRN (12:49)
[2023-01-29] MEDS ORDERED: diphenhydrAMINE 25 MG CAP PO PRN (12:49)
[2023-01-29] MEDS ORDERED: diphenhydrAMINE 50 MG/ML 1 ML VIAL IVP PRN ×2 (12:49)
--- NOTE | 2023-01-29 12:49 | P.PROBDLV ---
Vaginal Delivery Note - . Vaginal Delivery Note: Findings, viable female delivered at 1214, weight of 5 lbs. 14 oz., Apgars of 9 and 9 at one and 5 minutes respectively. 27-year-old at 37 weeks of gestation presents in active labor. Patient was admitted and made quick progress were complete. Patient was noted to be completely dilated and placed in a modified lithotomy position. With excellent maternal effort she brought the infant down to a presentation. Membrane was appreciated which was ruptured and infant was delivered without difficulty. Infant was noted to be in the occiput anterior presentation. After two-minute delay the umbilical cords doubly clamped and cut. Spontaneous cry was noted at . The placenta was delivered spontaneously intact with a three-vessel cord being. On inspection the patient's vaginal vault a first- degree perineal laceration was appreciated and repaired in the usual fashion after installation with lidocaine with 3-0 Rapide. Uterus is noted be firm and below the umbilicus. Inspection laceration site was hemostatic. Lochia was moderate. All counts were correct 2 at the end of the delivery. Patient and infant tolerated delivery well and are resting comfortably.
[2023-01-29] MEDS ORDERED: OXYTOCIN 30 UNITS/500 ML NS 30 UNIT in SALINE 1 500ML.BAG IV SCH (13:00)
[2023-01-29] MEDS: IBUPROFEN 600 MG TAB PO SCH ×2 (13:02→18:55)
[2023-01-29] MEDS: ACETAMINOPHEN TAB 325 MG TAB PO PRN ×2 (16:43→22:01)
[2023-01-29] MEDS: SENNOSIDES-DOCUSATE SODIUM 1 EACH TAB PO SCH (20:03)
[2023-01-30] MEDS: IBUPROFEN 600 MG TAB PO SCH ×4 (03:09→20:25)
--- NOTE | 2023-01-30 10:05 | P.DS ---
Providers Date of admission: 01/29/23 11:16 Expected date of discharge: 01/30/23 Attending physician: Reanna Barnhart Primary care physician: Stated None - Discharge Diagnosis(es) (1) 37 weeks gestation of Current Visit: Yes Status: Acute (2) Active labor at term Current Visit: No Status: Acute (3) Status post vaginal delivery Current Visit: No Status: Acute Hospital Course: this is a 27 yo G2 now P2002, that presented to labor and delivery with complaints of regular painful contractions yesterday morning. Patient states she had been chiara through the night but was able to sleep. When she woke contractions remained consistent. She denied loss of fluid at home. She has been receiving routine care with myself which has been essentially uncomplicated. For full details on this patient please the dictated history and physical. Patient was admitted and was noted to be 9 cm. Patient quickly progressed to complete amniotomy was performed and clear fluid was obtained patient began pu shing and had a normal spontaneous vaginal delivery of a viable female at 1214, weight of 5 lbs. 14 oz., Apgars of 9 and 9 at one and 5 minutes respectively. Patient's course has been uneventful. On this day #1 she is seen thinning and voiding without difficulty. She is tolerating a regular diet without nausea or vomiting. States her pain is well-controlled. She de nies concerns and would like discharge home at 24 hours if possible. Patient Condition at Discharge: Good Plan - Discharge Summary New Discharge Prescriptions: No Action Vit No.179/Iron/Folic [ Tablet] 1 each PO DAILY Aspirin [Children's Aspirin] 81 mg PO DAILY Ferrous Sulfate [Iron (65 MG Elemental)] 65 mg PO DAILY Discharge Medication List Aspirin [Children's Aspirin] 81 mg PO DAILY 01/29/23 [History] Ferrous Sulfate [Iron (65 MG Elemental)] 65 mg PO DAILY 01/29/23 [History] Vit No.179/Iron/Folic [ Tablet] 1 each PO DAILY 01/29/23 [History] Follow up Appointment(s)/Referral(s): Reanna Barnhart DO [Doctor of Osteopathic Medicine] - 4 Weeks Patient Instructions/Handouts: Vaginal Delivery (GEN), Vaginal Delivery (DC) Activity/Diet/Wound Care/Special Instructions: Tub baths or intercourse until 6 weeks . bleeding is discussed with patient. Patient is to call the office and make a routine visit in 4 weeks. Should she have any concerns (appointment she is urged colla the office. Discharge Disposition: HOME SELF-CARE
[2023-01-30] MEDS: PRENATAL VIT-IRON-FOLIC ACID 1 EACH TABLET PO SCH (17:39)
[2023-01-30] MEDS: SENNOSIDES-DOCUSATE SODIUM 1 EACH TAB PO SCH ×2 (19:20→20:07)
[2023-01-31] MEDS: IBUPROFEN 600 MG TAB PO SCH ×3 (02:57→07:48)
[2023-01-31] MEDS: SENNOSIDES-DOCUSATE SODIUM 1 EACH TAB PO SCH (07:48)
[2023-01-31] MEDS: PRENATAL VIT-IRON-FOLIC ACID 1 EACH TABLET PO SCH (09:00)
[2023-01-31 09:37] VITALS: BP 120/80; PULSE 94; RESP 20; TEMP 98.8
== END 2023-01-31 13:00 | disposition home or self-care (01) | DRG 807 ==
LOC: FBPOP 10:41 → 4FBP 11:16
PROVIDERS: ADMIT Obstetrics & Gynecology Obstetrics; ATTEND Obstetrics & Gynecology Obstetrics
PROC: 10E0XZZ Delivery of Products of Conception, External Approach (ICD-10-PCS; principal; 2023-01-29)
PROC: 0HQ9XZZ Repair Perineum Skin, External Approach (ICD-10-PCS; 2023-01-29)
PROC: 10907ZC Drainage of Amniotic Fluid, Therapeutic from Products of Conception, Via Natural or Artificial Opening (ICD-10-PCS; 2023-01-29)
DX: O70.0 First degree perineal laceration during delivery (principal); Z37.0 Single live birth; Z3A.37 37 weeks gestation of pregnancy; Z79.82 Long term (current) use of aspirin; Z86.16 Personal history of COVID-19; Z88.0 Allergy status to penicillin
CPT/HCPCS: 59025; 85025; 86850; 86900; 86901; 99213